=== PATIENT | male | born 1965 | race African-American/Black ===

== ENCOUNTER 2020-08-03 12:15 | Emergency (ER) | payer MEDICARE ==
[~2020-08-03] VITALS: Ht 175.3 cm; Wt 81.8 kg
[2020-08-03] MEDS: LIDOCAINE (700MG/PATCH) PATCH. TD ONE (12:52)
--- NOTE | 2020-08-03 14:32 | RAD ---
STUDY: CT head and cervical spine without contrast INDICATION: Fall down stairs. COMPARISON: None. TECHNIQUE: Axial CT imaging through the head and cervical spine without the use of intravenous contra st. Sagittal and coronal reformats were obtained. One or more of the following individualized dose reduction techniques were utilized for this examinat ion: 1. Automated exposure control 2. Adjustment of the mA and/or kV according to patient size 3. Use of iterative reconstruction technique. FINDINGS: CT head: No acute intracranial hemorrhage. No mass effect, midline shift or hydrocephalus. Connors-white matter d ifferentiation is maintained. Intracranial calcific atherosclerosis. Parenchymal volume is within normal limits. Scalp contusion versus scarring along the occiput with differentiation better made clinically. No dep ressed calvarial fracture. Mucosal thickening and some partially imaged fluid within the right maxill marina sinus favored inflammatory in etiology given corresponding mucoperiosteal thickening typical of c hronic sinusitis. CT cervical spine: No acute fracture or traumatic malalignment. Discogenic arthrosis greatest at C6-C7. Multilevel disc osteophyte complex formation and uncovertebra l joint hypertrophy. No advanced facet arthrosis. Multilevel central canal narrowing not fully charac terized but favored mostly mild and moderate in severity and greatest at C6-C7. Carotid calcific atherosclerosis. No definitive paraspinous hematoma. IMPRESSION: CT head: 1. No acute intracranial abnormality by CT. 2. Scalp findings of the occiput which could be scarring or mild contusion. No depressed calvarial f racture. CT cervical spine: 1. No acute fracture or traumatic malalignment. 2. Multilevel spondylosis greatest at C6-C7 where there is central canal narrowing that is suspected to be moderate but not fully characterized. Electronically signed by: PEG BLACKWELL MD (08/03/2020 2:30 PM) [facility]
--- NOTE | 2020-08-03 14:58 | RAD ---
Study: CT chest, abdomen and pelvis without contrast INDICATION: Fall down stairs. Left lower rib pain. COMPARISON: None. TECHNIQUE: Helical CT imaging performed of the chest, abdomen and pelvis performed without the use of intravenous contrast. Coronal and sagittal reformats were obtained. One or more of the following individualized dose reduction techniques were utilized for this examinat ion: 1. Automated exposure control 2. Adjustment of the mA and/or kV according to patient size 3. Use of iterative reconstruction technique. FINDINGS: CT Chest: Nonaneurysmal thoracic aorta. Scattered calcific atherosclerosis with coronary artery involvement. No retrosternal hematoma, pericardial effusion or pneumomediastinum. No pathologically enlarged media stinal or hilar lymph nodes. Nodular density with ill-defined margins at the upper aspect of the right lower lobe better character ized on the coronal sequence, image 14 series 5, which measures approximately 7 mm transverse. Left u pper lobe pleural-based nodule just above the fissure, image 19 series 2, measuring 4 mm. No pleural effusion or pneumothorax. Mild atelectasis at the left lung base. Patent central airways. Mild gynecomastia. No large body wall hematoma. No acute abnormality seen at the partially assessed shoulder girdles. Mild bilateral glenohumeral brenda nt arthrosis. Intact sternum. Acute fracture at the distal aspect of the left 11th rib with just unde r a shaft width displacement. No additional rib fracture is identified on the left. No acute thoracic spine fracture. CT Abdomen/Pelvis: Inherently limited study without contrast. No evidence for trauma to the kidneys, liver or spleen. Unremarkable gallbladder, biliary tree, pancr eas and adrenal glands. No hydronephrosis. Within normal limits bladder. Calcifications along the mauro inal vesicles. The prostate is not enlarged. Unremarkable colon. The appendix is difficult to visualize in its entirety. Nonobstructed small bowel . Poorly evaluated stomach on account of underdistention. Scattered calcific atherosclerosis. No evidence for acute aortic injury with assessment limited witho ut contrast. No lymph node is identified that meets pathologic criteria based on size. No free pelvic fluid or pneumoperitoneum. No acute fracture seen throughout the pelvis. Bilateral hip arthrosis is mild/moderate. Transitional lumbosacral anatomy. Discogenic arthrosis mainly from L3-L4 through L5-S1 . Peripherally mineralized disc bulge at L4-L5 potentially with moderate associated central canal rivka nosis. Osseous neural foraminal narrowing greatest on the right at L5-S1. IMPRESSION: CT Chest: 1. Acute fracture of the left 11th rib with just under a cortical width displacement. 2. Nodule with ill-defined margins at the upper aspect of the right lower lobe measuring up to 7 mm. This is best seen on coronal image 14 series 5. Per Fleischner guidelines follow-up CT is recommende d in 6 months. Additional pleural-based 4 mm nodule at the posterior left upper lobe is not suspiciou s based on size but can be followed up as well. CT Abdomen/Pelvis: 1. Limited exam without contrast. No sequela of acute trauma seen below the diaphragm. 2. Chronic observations detailed in the body the report. Electronically signed by: PEG BLACKWELL MD (08/03/2020 2:56 PM) [facility]
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
[2020-08-03] MEDS: oxyCODONE ORAL SOLUTION 5 MG/5 ML SOLUTION PEG PRN (15:44)
[2020-08-03] MEDS: oxyCODONE ER 15 MG TAB.ER.12H PO ONE (15:44)
[2020-08-03] MEDS ORDERED: LIDO1ADH78 TP (16:51)
[2020-08-03] MEDS ORDERED: OXYC5CAP PO (16:51)
--- NOTE | 2020-08-03 16:57 | EKG ---
[facility] [address] [place] [address] Test Date: 2020-08-03 Test Time: 12:20:45 Pat Name: LUIS JORDAN Department: Room: Gender: M [employer]: : 1965 Requested By: ZANDER STERN Order Number: [id number] Reading MD: Rei Birmingham Measurements Intervals [place] Rate: 72 P: 69 [place]: 128 QRS: 66 QRSD: 84 T: 54 QT: 374 QTc: 411 Interpretive Statements SINUS RHYTHM LEFT ATRIAL ABNORMALITY ABNORMAL ECG RI6.02 No previous ECG available for comparison Electronically Signed On 08-05-2020 15:24:58 CDT by Rei Birmingham
[2020-08-03 18:00] VITALS: BP 136/80
== END 2020-08-03 18:10 | disposition home or self-care (01) ==
LOC: ER 12:15
DX: S22.32XA Fracture of one rib, left side, initial encounter for closed fracture (principal); M54.5 Low back pain; E11.9 Type 2 diabetes mellitus without complications; I10 Essential (primary) hypertension; F17.200 Nicotine dependence, unspecified, uncomplicated; Z88.5 Allergy status to narcotic agent; W18.39XA Other fall on same level, initial encounter; Y93.89 Activity, other specified; Y92.89 Other specified places as the place of occurrence of the external cause; Y99.8 Other external cause status
CPT/HCPCS: 70450; 71250; 72125; 74176; 93005; 99285-25

== ENCOUNTER 2020-12-15 18:17 | Emergency (ER) | payer OTHER, MEDICARE, MEDICAID ==
[~2020-12-15] VITALS: Ht 175.3 cm; Wt 170.0 kg
[~2020-12-15 18:17] MED LIST: LIDO1ADH78 TP; OXYC5CAP PO
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
[2020-12-15] MEDS: ORPHENADRINE CITRATE 60 MG/2 ML VIAL. IM ONE (20:52)
[2020-12-15] MEDS: KETOROLAC 60 MG/2 ML VIAL. IM ONE (20:53)
[2020-12-15] MEDS ORDERED: IBUP-1060 PO (21:51)
[2020-12-15] MEDS ORDERED: CYCL10TA2 PO (21:51)
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
[2020-12-15 22:26] VITALS: BP 171/78
== END 2020-12-15 22:30 | disposition home or self-care (01) ==
LOC: ER 18:17
DX: S16.1XXA Strain of muscle, fascia and tendon at neck level, initial encounter (principal); E11.9 Type 2 diabetes mellitus without complications; I10 Essential (primary) hypertension; F17.200 Nicotine dependence, unspecified, uncomplicated; Z88.5 Allergy status to narcotic agent; V89.2XXA Person injured in unspecified motor-vehicle accident, traffic, initial encounter; Y93.I9 Activity, other involving external motion; Y92.89 Other specified places as the place of occurrence of the external cause; Y99.8 Other external cause status
CPT/HCPCS: 72040; 96372; 99285; J1885; J2360